=== PATIENT | female | born 1945 | race Caucasian/White ===

== ENCOUNTER → 2018-09-24 | Outpatient (CLI) | payer MEDICARE, OTHER ==
--- NOTE | 2018-09-29 19:05 | ENG ---
ELECTRONYSTAGMOGRAM REPORT ATTENDING PHYSICIAN: Dr. Mars Calderon VIDEO ELECTRONYSTAGMOGRAPHIC REPORT: AGE: 73 VNG INDICATIONS: A 73-year-old female with vertigo ongoing for 4 to 5 months, sudden onset, worsening and occurring 1-2 times a day, lasting for 1-1/2 to 2 hours. Made worse by bending over. Has experienced 6 falls with the dizziness. VNG FINDINGS: SPONTANEOUS NYSTAGMUS: SACCADES: Saccades shows intact peak velocities accuracy and latencies. GAZE TEST: Gaze with fixation shows no nystagmus in any of the directions of gaze including centrally with vision denied. SINUSOIDAL TRACKING: Tracking shows intact tracking. No significant break-ups. OKN TEST: Optokinetic nystagmus shows no significant asymmetry. KARINA-HALLPIKE TEST: Marble-Hallpike maneuver i.e. dynamic position test not performed due to mobility limitations. POSITION TEST: Static position testing done in 4 position instead of 6 due to back and neck pain, shows no nystagmus in any of the positions tested. CALORIC TEST: Caloric testing unable to be completed as patient is unable to keep eyes open for reading. IMPRESSIONS: 1. No evidence for central nervous system dysfunction by the testing able to be completed today. 2. Vestibular testing is limited due to inability of the patient to complete caloric and dynamic position testing and so no determinations can be made in regard to chronic vestibulopathy or BPV. There is no electrophysiologic evidence for acute vestibulopathy i.e. no Nystagmus encountered during testing today. KANU / ALISSONN: [id number] / MTDD
== END | disposition home or self-care (01) ==
LOC: NEUROMAIN 07:01
PROVIDERS: ATTEND Otolaryngology
DX: R42 Dizziness and giddiness (principal); H72.92 Unspecified perforation of tympanic membrane, left ear
CPT/HCPCS: 92537; 92540

== ENCOUNTER → 2018-10-31 | Outpatient (CLI) | payer MEDICARE, OTHER ==
--- NOTE | 2018-10-31 14:51 | MR ---
EXAMINATION TYPE: MR brain wo con DATE OF EXAM: 10/31/2018 COMPARISON: None HISTORY: Dizziness and giddiness CONTRAST: Performed utilizing 0 mL intravenous Gadavist gadolinium contrast. TECHNIQUE: Multiplanar, multiecho imaging on a 3.0 Daniela magnet is performed through the brain. Stud y is performed within 24 hours of arrival to the hospital. The craniovertebral junction is normal. The pituitary is normal. Diffusion-weighted imaging is performed. No abnormal hyperintensity is present to suggest an acute i ntracranial infarct or acute ischemic change. There are couple of punctate hyperintensities within the deep white matter which are nonspecific. Iker rovascular ischemic changes most likely within the differential. This is not out of proportion patien t age. Ventricles and sulci are appropriate for the patient age. IMPRESSIONS: 1. Mild nonspecific subcortical white matter ischemic changes.
== END | disposition home or self-care (01) ==
LOC: RADMRIMAIN 11:06
PROVIDERS: ATTEND Psychiatry & Neurology Neurology
DX: I67.82 Cerebral ischemia (principal)
CPT/HCPCS: 70551